=== PATIENT | female | born 2000 | race Hispanic/Latino ===

== ENCOUNTER 2021-05-05 10:15 | Emergency (ER) | payer OTHER, SELFPAY ==
[2021-05-05] MEDS ORDERED: Ondansetron ODT 4 MG TAB ONE (10:53)
[2021-05-05 18:15] LABS: SARS-CoV-2 PCR by NAA DETECTED (NotDetected)
== END 2021-05-05 11:00 | disposition home or self-care (01) ==
LOC: NAV ERS 10:15
DX: U07.1 COVID-19 (principal); R11.10 Vomiting, unspecified
CPT/HCPCS: 87804; 99284; Q0162; U0003; U0005